=== PATIENT | female | born 1930 | race Caucasian/White ===

== ENCOUNTER 2016-08-03 10:25 | Inpatient (IN) | payer MEDICARE ==
[~2016-08-03] VITALS: Ht 172.7 cm; Wt 60.6 kg
[2016-08-03] MEDS ORDERED: SODIUM CHLORIDE FLUSH 10ML SYR IVF ONE (11:30)
[2016-08-03 12:16] LABS: BLOOD UREA NITROGEN 8 mg/dL (7-18)
[2016-08-03 12:22] LABS: IS PT STATUS REG ER OR PRE ER? YES
[2016-08-03] MEDS ORDERED: PHEN100C PO (14:39)
[2016-08-03] MEDS ORDERED: HYDROcodone/APAP 5/325 TABLET PO PRN (15:00)
[2016-08-03] MEDS ORDERED: DOCUSATE 100 MG CAPSULE PO PRN (15:00)
[2016-08-03] MEDS ORDERED: PROMETHAZINE 25 MG/ML, 1ML IM PRN (15:00)
[2016-08-03] MEDS ORDERED: POLYETHYLENE GLYCOL 17 GM PACKET PO PRN (15:00)
[2016-08-03] MEDS ORDERED: ACETAMINOPHEN 325 MG TABLET PO PRN (15:00)
[2016-08-03] MEDS ORDERED: ONDANSETRON 2MG/ML, 2ML IVP PRN (15:00)
[2016-08-03] MEDS ORDERED: BISACODYL 10 MG SUPP PR PRN (15:00)
[2016-08-03] MEDS ORDERED: OMNIPAQUE 350 MG/ML, 100ML BOTTLE ONE (16:03)
[2016-08-03] MEDS ORDERED: CEFTRIAXONE PMX 1GM/50ML 50 ML ONE (16:26)
[2016-08-03] MEDS ORDERED: ENOXAPARIN 40 MG/0.4 ML ONE (16:26)
[2016-08-03] MEDS: PHENYTOIN 100 MG CAPSULE PO SCH ×2 (16:30→21:36)
[2016-08-03] MEDS: ENOXAPARIN 40 MG/0.4 ML SQ SCH (16:30)
[2016-08-03] MEDS: CEFTRIAXONE PMX 1GM/50ML 50 ML IV SCH (16:30)
[2016-08-03 18:20] LABS: IS PT STATUS REG ER OR PRE ER? YES
[2016-08-03] MEDS: LACTOBACILLUS CHEW TABLET PO SCH ×2 (21:00→21:35)
[2016-08-03] MEDS: DOXYCYCLINE 100 MG in DEXTROSE 5% 250 ML IV SCH (21:36)
[2016-08-03 23:17] VITALS: BP 114/64
[2016-08-04 01:04] LABS: IS PT STATUS REG ER OR PRE ER? NO
[2016-08-04 01:49] VITALS: BP 106/71
[2016-08-04 06:43] LABS: ASPARTATE AMINO TRANSFERASE 16 U/L (15-37); BLOOD UREA NITROGEN 6 mg/dL (7-18)
[2016-08-04 07:37] VITALS: BP 115/76
[2016-08-04] MEDS: SENNA/DOCUSATE TABLET PO SCH (09:00)
[2016-08-04] MEDS: DOXYCYCLINE 100 MG in DEXTROSE 5% 250 ML IV SCH (09:21)
[2016-08-04] MEDS: PHENYTOIN 100 MG CAPSULE PO SCH ×3 (09:21→20:05)
[2016-08-04] MEDS: LACTOBACILLUS CHEW TABLET PO SCH ×4 (09:21→20:06)
[2016-08-04 13:19] VITALS: BP 113/75
[2016-08-04] MEDS: ENOXAPARIN 40 MG/0.4 ML SQ SCH (15:28)
[2016-08-04] MEDS: CEFTRIAXONE PMX 1GM/50ML 50 ML IV SCH (15:28)
[2016-08-04 20:00] VITALS: BP 112/75
[2016-08-05 02:00] VITALS: BP 112/72
[2016-08-05 06:18] LABS: BLOOD UREA NITROGEN 10 mg/dL (7-18)
[2016-08-05] MEDS: LACTOBACILLUS CHEW TABLET PO SCH ×6 (07:22→21:26)
[2016-08-05] MEDS: SENNA/DOCUSATE TABLET PO SCH (07:28)
[2016-08-05] MEDS: PHENYTOIN 100 MG CAPSULE PO SCH ×3 (07:28→21:26)
[2016-08-05 07:39] VITALS: BP 119/81
[2016-08-05] MEDS ORDERED: FUROSEMIDE 20 MG/2 ML IV ONE (08:00)
[2016-08-05] MEDS ORDERED: POTASSIUM CHLORIDE 20 MEQ TAB.ER.PRT PO ONE (08:00)
[2016-08-05 12:41] VITALS: BP 109/73
[2016-08-05] MEDS: SPIRONOLACTONE 25 MG TABLET PO SCH (12:50)
[2016-08-05] MEDS: LISINOPRIL 5 MG TABLET PO SCH (12:50)
[2016-08-05] MEDS ORDERED: CEFTRIAXONE PMX 1GM/50ML 50 ML IV SCH (15:30)
[2016-08-05] MEDS: ENOXAPARIN 40 MG/0.4 ML SQ SCH (15:32)
[2016-08-05] MEDS: CARVEDILOL 3.125 MG TABLET PO SCH (18:23)
[2016-08-05 19:45] VITALS: BP 95/65
[2016-08-06 02:30] VITALS: BP 110/76
[2016-08-06] MEDS: CARVEDILOL 3.125 MG TABLET PO SCH ×2 (05:39→17:14)
[2016-08-06 06:08] LABS: BLOOD UREA NITROGEN 9 mg/dL (7-18)
[2016-08-06 07:41] VITALS: BP 114/79
[2016-08-06] MEDS: SPIRONOLACTONE 25 MG TABLET PO SCH (08:27)
[2016-08-06] MEDS: PHENYTOIN 100 MG CAPSULE PO SCH ×3 (08:27→21:26)
[2016-08-06] MEDS: LACTOBACILLUS CHEW TABLET PO SCH ×6 (08:27→21:26)
[2016-08-06] MEDS: LISINOPRIL 5 MG TABLET PO SCH (08:27)
[2016-08-06] MEDS: FUROSEMIDE 20 MG/2 ML IV SCH (08:28)
[2016-08-06] MEDS: SENNA/DOCUSATE TABLET PO SCH (08:28)
[2016-08-06 14:56] VITALS: BP 90/57
[2016-08-06] MEDS: ENOXAPARIN 40 MG/0.4 ML SQ SCH (15:47)
[2016-08-06 19:57] VITALS: BP 92/58
[2016-08-07 00:59] VITALS: BP 109/72
[2016-08-07] MEDS: CARVEDILOL 3.125 MG TABLET PO SCH ×3 (04:59→21:00)
[2016-08-07 05:11] LABS: BLOOD UREA NITROGEN 11 mg/dL (7-18)
[2016-08-07 07:00] VITALS: BP 109/73
[2016-08-07] MEDS: PHENYTOIN 100 MG CAPSULE PO SCH ×3 (08:04→21:17)
[2016-08-07] MEDS: SPIRONOLACTONE 25 MG TABLET PO SCH (08:04)
[2016-08-07] MEDS: FUROSEMIDE 20 MG/2 ML IV SCH (08:04)
[2016-08-07] MEDS: LACTOBACILLUS CHEW TABLET PO SCH ×5 (08:04→21:18)
[2016-08-07] MEDS: LISINOPRIL 5 MG TABLET PO SCH (08:04)
[2016-08-07] MEDS: SENNA/DOCUSATE TABLET PO SCH (08:10)
[2016-08-07] MEDS ORDERED: REGADENOSON 0.4 MG/5 ML SYRINGE ONE (08:15)
[2016-08-07 14:00] VITALS: BP 105/72
[2016-08-07] MEDS: ENOXAPARIN 40 MG/0.4 ML SQ SCH (17:04)
[2016-08-07 19:26] VITALS: BP 93/60
[2016-08-08 01:47] VITALS: BP 98/63
[2016-08-08 06:31] LABS: BLOOD UREA NITROGEN 10 mg/dL (7-18)
[2016-08-08 07:43] VITALS: BP 102/66
[2016-08-08] MEDS: SPIRONOLACTONE 25 MG TABLET PO SCH (08:07)
[2016-08-08] MEDS: LACTOBACILLUS CHEW TABLET PO SCH (08:08)
[2016-08-08] MEDS: PHENYTOIN 100 MG CAPSULE PO SCH (08:08)
[2016-08-08] MEDS: SENNA/DOCUSATE TABLET PO SCH (08:09)
[2016-08-08] MEDS: LISINOPRIL 5 MG TABLET PO SCH (08:09)
[2016-08-08] MEDS ORDERED: CARVEDILOL 3.125 MG TABLET PO SCH (09:00)
[2016-08-08] MEDS ORDERED: FUROSEMIDE 20 MG TABLET PO SCH (09:00)
[2016-08-08] MEDS ORDERED: LISI5TAB7 PO (12:24)
[2016-08-08] MEDS ORDERED: FURO20TA3 PO (12:24)
[2016-08-08] MEDS ORDERED: SPIR25TA PO (12:24)
[2016-08-08] MEDS ORDERED: CARV3.1212 PO (12:24)
== END 2016-08-08 13:22 | disposition home or self-care (01) | DRG 291 ==
LOC: ED 14:21 → SUATTDRO 14:31 → EDIP 14:59 → 5SO 19:10
PROVIDERS: ADMIT Internal Medicine; ATTEND Internal Medicine
DX: I50.23 Acute on chronic systolic (congestive) heart failure (principal); J18.9 Pneumonia, unspecified organism; E87.2 Acidosis; E87.1 Hypo-osmolality and hyponatremia; I42.9 Cardiomyopathy, unspecified; N39.0 Urinary tract infection, site not specified; D75.1 Secondary polycythemia; G40.909 Epilepsy, unspecified, not intractable, without status epilepticus; G89.29 Other chronic pain; I27.2 Other secondary pulmonary hypertension; I34.0 Nonrheumatic mitral (valve) insufficiency; I44.7 Left bundle-branch block, unspecified; I45.81 Long QT syndrome; J20.9 Acute bronchitis, unspecified; K44.9 Diaphragmatic hernia without obstruction or gangrene; Z96.641 Presence of right artificial hip joint; M19.90 Unspecified osteoarthritis, unspecified site; Z82.49 Family history of ischemic heart disease and other diseases of the circulatory system; Z85.038 Personal history of other malignant neoplasm of large intestine; Z87.891 Personal history of nicotine dependence; Z68.20 Body mass index [BMI] 20.0-20.9, adult; Z90.49 Acquired absence of other specified parts of digestive tract; Z88.8 Allergy status to other drugs, medicaments and biological substances
CPT/HCPCS: 36415; 71010; 71275; 78452; 80048; 80053; 80185; 81001; 82040; 83605; 83735; 83880; 84443; 84484; 85025; 85379; 87040; 87086; 93005; 93017; 96365; 96372; C8929; J0696; J1650; J2785; J7060; Q9967; A9502; C9898; J1940

== ENCOUNTER → 2016-09-14 | Outpatient (CLI) | payer MEDICARE ==
[~2016-09-14] MED LIST: CARV3.1212 PO; FURO20TA3 PO; LISI5TAB7 PO; PHEN100C PO; SPIR25TA PO
== END | disposition home or self-care (01) ==
LOC: CFH 12:37
PROVIDERS: ATTEND Internal Medicine Cardiovascular Disease
DX: I08.1 Rheumatic disorders of both mitral and tricuspid valves (principal); I37.1 Nonrheumatic pulmonary valve insufficiency; I51.7 Cardiomegaly
CPT/HCPCS: 93306

== ENCOUNTER 2016-12-24 12:27 | Inpatient (IN) | payer MEDICARE ==
[~2016-12-24] VITALS: Ht 172.7 cm; Wt 59.7 kg
[2016-12-24 13:19] LABS: HEMATOCRIT 47.4 % (34.6-47.8); HEMOGLOBIN 15.9 g/dL (11.7-16.4); WHITE BLOOD COUNT 12.3 x10^3/uL (3.4-10)
[2016-12-24 13:30] LABS: ASPARTATE AMINO TRANSFERASE 19 U/L (15-37); BLOOD UREA NITROGEN 19 mg/dL (7-18)
[2016-12-24] MEDS ORDERED: SODIUM CHLORIDE 0.9% 1,000ML IVBOLUS ONE ×2 (13:30→14:00)
[2016-12-24] MEDS ORDERED: SODIUM CHLORIDE FLUSH 10ML SYR IVF ONE (13:30)
[2016-12-24] MEDS ORDERED: OMNIPAQUE 350 MG/ML, 100ML BOTTLE ONE (13:58)
[2016-12-24] MEDS ORDERED: SODIUM CHLORIDE FLUSH 10ML SYR IVF PRN (15:00)
[2016-12-24] MEDS: NS + 20MEQ KCL 1,000 ML IV SCH (15:18)
[2016-12-24] MEDS ORDERED: BENZOCAINE 20% SPRAY 0.5ML ONE (15:23)
[2016-12-24] MEDS ORDERED: LABETALOL 5MG/ML, 20ML IVPush PRN (15:30)
[2016-12-24] MEDS ORDERED: NS + 20MEQ KCL 1,000 ML IV ONE (15:41)
[2016-12-24 20:00] VITALS: BP 120/79
[2016-12-24] MEDS: PHENYTOIN SODIUM 50 MG/ML, 2ML IVPush SCH (21:48)
[2016-12-24 21:49] VITALS: BP 120/79
[2016-12-25 01:08] VITALS: BP 103/74
[2016-12-25 05:28] LABS: BLOOD UREA NITROGEN 18 mg/dL (7-18)
[2016-12-25 05:29] LABS: HEMATOCRIT 43.9 % (34.6-47.8); HEMOGLOBIN 14.7 g/dL (11.7-16.4); WHITE BLOOD COUNT 11.8 x10^3/uL (3.4-10)
[2016-12-25 05:32] LABS: ASPARTATE AMINO TRANSFERASE 16 U/L (15-37)
[2016-12-25 07:53] VITALS: BP 109/70
[2016-12-25] MEDS: PHENYTOIN SODIUM 50 MG/ML, 2ML IVPush SCH ×3 (08:21→20:43)
[2016-12-25] MEDS: NS + 20MEQ KCL 1,000 ML IV SCH (08:21)
[2016-12-25] MEDS: CEFTRIAXONE PMX 1GM/50ML 50 ML IV SCH (13:26)
[2016-12-25 13:28] VITALS: BP 96/63
[2016-12-25 20:25] VITALS: BP 107/64
[2016-12-26 01:28] VITALS: BP 97/59
[2016-12-26] MEDS: NS + 20MEQ KCL 1,000 ML IV SCH ×2 (06:31→21:35)
[2016-12-26 07:37] VITALS: BP 103/66
[2016-12-26] MEDS: PHENYTOIN SODIUM 50 MG/ML, 2ML IVPush SCH ×3 (09:50→21:35)
[2016-12-26 12:42] VITALS: BP 105/68
[2016-12-26] MEDS: CEFTRIAXONE PMX 1GM/50ML 50 ML IV SCH (12:53)
[2016-12-26 21:17] VITALS: BP 98/61
[2016-12-27 03:31] VITALS: BP 116/69
[2016-12-27 05:37] LABS: HEMATOCRIT 41.7 % (34.6-47.8)
[2016-12-27 05:49] LABS: ASPARTATE AMINO TRANSFERASE 14 U/L (15-37); BLOOD UREA NITROGEN 18 mg/dL (7-18)
[2016-12-27 07:49] VITALS: BP 130/81
[2016-12-27] MEDS: PHENYTOIN SODIUM 50 MG/ML, 2ML IVPush SCH ×4 (08:27→20:15)
[2016-12-27] MEDS ORDERED: MIDAZOLAM 1 MG/ML, 2ML ONE (09:07)
[2016-12-27] MEDS ORDERED: FENTANYL PF 100 MCG/2ML ONE ×4 (09:08→13:11)
[2016-12-27] MEDS ORDERED: ROPIvacaine/PF 0.5%, 30 ML ONE (10:08)
[2016-12-27] MEDS ORDERED: PROPOFOL 10 MG/ML, 20ML ONE (10:50)
[2016-12-27] MEDS ORDERED: KETAMINE 10 MG/ML, 20ML ONE (10:50)
[2016-12-27] MEDS ORDERED: ROCURONIUM 10 MG/ML ONE (10:50)
[2016-12-27] MEDS ORDERED: DEXAMETHASONE 4 MG/ML, 1ML ONE (10:50)
[2016-12-27] MEDS ORDERED: PROPOFOL 10 MG/ML, 50ML ONE (10:50)
[2016-12-27] MEDS ORDERED: PHENYLEPHRINE 10 MG/ML ONE (10:50)
[2016-12-27] MEDS ORDERED: ONDANSETRON 2MG/ML, 2ML ONE (10:50)
[2016-12-27] MEDS ORDERED: CEFOTETAN 1 GM ONE (10:50)
[2016-12-27] MEDS ORDERED: HYDROmorphone 1 MG/ML, 1ML ONE ×2 (11:49→11:57)
[2016-12-27] MEDS ORDERED: HYDROmorphone 1 MG/ML, 1ML IV PRN (12:00)
[2016-12-27] MEDS ORDERED: MEPERIDINE/PF 25MG/0.5ML IVPush PRN (12:00)
[2016-12-27] MEDS ORDERED: OXYcodone 5 MG/5 ML ORAL.SOL UDC PO PRN (12:00)
[2016-12-27] MEDS ORDERED: FENTANYL PF 100 MCG/2ML IV PRN (12:00)
[2016-12-27] MEDS ORDERED: hydrALAzine 20 MG/ML, 1ML IV PRN (12:00)
[2016-12-27] MEDS ORDERED: ONDANSETRON 2MG/ML, 2ML IVPush PRN (12:00)
[2016-12-27] MEDS ORDERED: PROMETHAZINE 25 MG/ML, 1ML IV PRN (12:00)
[2016-12-27] MEDS ORDERED: FENTANYL PF 100 MCG/2ML IVPush ONE (13:30)
[2016-12-27] MEDS: morphine SULFATE 10 MG/ML, 1ML IVPush PRN ×5 (13:30→20:03)
[2016-12-27 14:00] VITALS: BP 105/65
[2016-12-27] MEDS: CEFTRIAXONE PMX 1GM/50ML 50 ML IV SCH (14:19)
[2016-12-27] MEDS: NS + 20MEQ KCL 1,000 ML IV SCH (16:49)
[2016-12-27 19:23] VITALS: BP 91/56
[2016-12-28 01:06] VITALS: BP_SYST 134; BP_SYST 85; BP_DIAS 48; BP_DIAS 75
[2016-12-28] MEDS: morphine SULFATE 10 MG/ML, 1ML IVPush PRN ×4 (04:20→20:27)
[2016-12-28] MEDS ORDERED: SODIUM CHLORIDE 0.9%, 250ML IVBOLUS ONE (07:00)
[2016-12-28 08:11] VITALS: BP 95/64
[2016-12-28] MEDS: PHENYTOIN SODIUM 50 MG/ML, 2ML IVPush SCH ×3 (09:00→20:26)
[2016-12-28 11:24] LABS: HEMATOCRIT 40.2 % (34.6-47.8); HEMOGLOBIN 13.4 g/dL (11.7-16.4); WHITE BLOOD COUNT 9.3 x10^3/uL (3.4-10)
[2016-12-28 11:32] LABS: BLOOD UREA NITROGEN 21 mg/dL (7-18)
[2016-12-28] MEDS: NS + 20MEQ KCL 1,000 ML IV SCH (12:23)
[2016-12-28] MEDS ORDERED: D5%-0.45NACL+KCL 20MEQ 1,000 ML IV SCH (13:00)
[2016-12-28] MEDS: CEFTRIAXONE PMX 1GM/50ML 50 ML IV SCH (14:57)
[2016-12-28 15:00] VITALS: BP 100/62
[2016-12-28 20:17] VITALS: BP 98/62
[2016-12-29] MEDS: morphine SULFATE 10 MG/ML, 1ML IVPush PRN ×3 (01:18→11:32)
[2016-12-29 01:20] VITALS: BP 99/60
[2016-12-29] MEDS: PHENYTOIN SODIUM 50 MG/ML, 2ML IVPush SCH (09:00)
[2016-12-29] MEDS ORDERED: VISIPAQUE 270 MG/ML, 50ML BOTTLE ONE (11:39)
[2016-12-29] MEDS ORDERED: ATROPINE OPHTH SOLN 1%, 5ML BC PRN (12:00)
[2016-12-29] MEDS ORDERED: MORPHINE SULFATE 4 MG/ML, 1ML IVPush PRN (12:00)
[2016-12-29] MEDS ORDERED: PROCHLORPERAZINE 25 MG SUPP PR PRN (12:00)
[2016-12-29] MEDS: CEFTRIAXONE PMX 1GM/50ML 50 ML IV SCH (13:00)
[2016-12-29] MEDS: MORPHINE SULFATE 4 MG/ML, 1ML IVPush PRN ×4 (15:44→23:03)
[2016-12-30] MEDS: MORPHINE SULFATE 4 MG/ML, 1ML IVPush PRN ×7 (01:01→17:37)
[2016-12-30] MEDS: SCOPOLAMINE PATCH, 1.5MG PATCH.TD72 TD PRN (08:23)
[2016-12-30] MEDS ORDERED: FENTANYL 12 MCG PATCH TD SCH (13:00)
[2016-12-31] MEDS: morphine SULFATE 10 MG/ML, 1ML IVPush PRN ×2 (00:51→05:58)
[2016-12-31] MEDS: ONDANSETRON 2MG/ML, 2ML IVPush PRN ×2 (08:15→14:58)
[2016-12-31] MEDS: LORazepam 2 MG/ML, 1ML IVPush PRN ×3 (08:15→23:05)
[2016-12-31] MEDS: MORPHINE SULFATE 4 MG/ML, 1ML IVPush PRN ×3 (11:24→21:06)
[2016-12-31] MEDS: SCOPOLAMINE PATCH, 1.5MG PATCH.TD72 TD PRN (14:58)
[2017-01-01] MEDS: MORPHINE SULFATE 4 MG/ML, 1ML IVPush PRN (01:26)
[2017-01-01] MEDS: LORazepam 2 MG/ML, 1ML IVPush PRN (04:32)
[2017-01-02] MEDS ORDERED: FENTANYL REMOVE PATCH NOTE XX SCH (13:00)
== END 2017-01-01 07:02 | disposition expired | DRG 330 ==
LOC: ED 14:33 → EDIP 14:44 → 5SO 18:29 → 3NW 12-29 16:05
PROVIDERS: ADMIT Hospitalist; ATTEND Hospitalist
PROC: 0DB80ZZ Excision of Small Intestine, Open Approach (ICD-10-PCS; principal; 2016-12-27 11:00)
PROC: B5181ZA Fluoroscopy of Superior Vena Cava using Low Osmolar Contrast, Guidance (ICD-10-PCS; 2016-12-29)
PROC: 02HV33Z Insertion of Infusion Device into Superior Vena Cava, Percutaneous Approach (ICD-10-PCS; 2016-12-29)
PROC: B548ZZA Ultrasonography of Superior Vena Cava, Guidance (ICD-10-PCS; 2016-12-29)
DX: K56.60 Unspecified intestinal obstruction (principal); E87.1 Hypo-osmolality and hyponatremia; I47.2 Ventricular tachycardia; E87.0 Hyperosmolality and hypernatremia; E44.0 Moderate protein-calorie malnutrition; I50.22 Chronic systolic (congestive) heart failure; I42.9 Cardiomyopathy, unspecified; N39.0 Urinary tract infection, site not specified; I11.0 Hypertensive heart disease with heart failure; Z96.641 Presence of right artificial hip joint; M19.90 Unspecified osteoarthritis, unspecified site; I34.0 Nonrheumatic mitral (valve) insufficiency; G40.909 Epilepsy, unspecified, not intractable, without status epilepticus; K56.5 Intestinal adhesions [bands] with obstruction (postinfection); Z51.5 Encounter for palliative care; Z66 Do not resuscitate; Z82.49 Family history of ischemic heart disease and other diseases of the circulatory system; Z85.038 Personal history of other malignant neoplasm of large intestine; Z87.891 Personal history of nicotine dependence; Z90.49 Acquired absence of other specified parts of digestive tract; Z93.1 Gastrostomy status; Z88.8 Allergy status to other drugs, medicaments and biological substances
CPT/HCPCS: 36415; 36569; 74177; 76937; 77001; 80048; 80053; 80185; 81001; 83690; 83735; 84100; 85025; 85610; 86850; 86900; 87086; 88307; 96361; 96365; 96366; J0696; J1100; J1165; J1170; J2250; J2405; J2704; J2795; J3010; J3480; Q9966; Q9967; C1751; J2060; J2270; J2370; J7030; J7050; S0074